=== PATIENT | female | born 1955 | race Caucasian/White ===

== ENCOUNTER → 2016-10-19 | Outpatient (REF) | payer BC ==
[2016-10-19 14:40] LABS: INR 0.89
== END ==
LOC: M LAB REF 14:01
PROVIDERS: ATTEND Nurse Practitioner Family
DX: Z79.1 Long term (current) use of non-steroidal anti-inflammatories (NSAID) (principal)

== ENCOUNTER → 2017-02-19 | Outpatient (CLI) | payer BC ==
--- NOTE | 2017-02-19 16:20 | REPMRS ---
Patient History The patient states she has not had a clinical breast exam in over a year. Patient is postmenopausal. No known family history of cancer. Digital Woman Screen Mammo: February 19, 2017 - Exam #: [id number] Bilateral CC and MLO view(s) were taken. Technologist: Jodi Bowden, Technologist Prior study comparison: September 01, 2014, bilateral digital mammo screening bilat, performed at [facility]. August 28, 2013, left breast digital mammo diagnostic unilateral, performed at [facility]. FINDINGS: There are scattered fibroglandular densities. There has been no change in the appearance of the mammogram from the prior studies. There is a mild amount of residual fibroglandular tissue which is fairly symmetric. There is no interval development of dominant mass, architectural distortion, or clustered microcalcification suggestive of malignancy. ASSESSMENT: BI-RADS/ACR category 1 mammogram. Negative. Recommendation Routine screening mammogram in 1 year (for women over age 40). This mammogram was interpreted with the aid of an FDA-approved computer-aided dectection system. Electronically Signed By: Floyd Herbert MD 02/19/17 [id number]
--- NOTE | 2017-02-22 10:58 | DEXA ---
AP SPINE L1 - L4 1.317 1.0 2.3 LT FEMUR TOTAL 1.175 1.3 2.3 RT FEMUR TOTAL 1.109 0.8 1.8 TOTAL BODY TOTAL OTHER COMMENTS: Normal bone densitometry of the spine and hips. The density of the spine is decreased 4.1% since 12/25/2007. The density of the left hip has decreased 4.0% since 12/25/2007. The density of the right hip has decreased 7.1% since 12/25/2007. The decreased density of the spine does represent a significant change. The decreased density of the left hip does represent a significant change. The decreased density of the right hip does represent a significant change. FOLLOW-UP: Recommendation for the next bone density exam: 5 years. HARMONY
== END ==
LOC: M WHC 15:11
PROVIDERS: ATTEND Internal Medicine
DX: Z12.31 Encounter for screening mammogram for malignant neoplasm of breast (principal); Z13.820 Encounter for screening for osteoporosis; M85.9 Disorder of bone density and structure, unspecified; Z78.0 Asymptomatic menopausal state
CPT/HCPCS: 77080; G0202

== ENCOUNTER 2019-01-19 07:42 | Day surgery (SDC) | payer BC ==
[~2019-01-19] VITALS: Ht 165.1 cm; Wt 84.4 kg
[~2019-01-19 07:42] MED LIST: MELO15TA28 PO; MULTCAP PO; NS 1,000 ML IV ONE
[2019-01-19] MEDS ORDERED: LIDOCAINE 2% INJ 100 MG/5 ML SDV (FOR ANES.) As Ordered ONE (09:26)
[2019-01-19] MEDS ORDERED: PROPOFOL 200 MG/20 ML VIAL As Ordered ONE (09:27)
--- NOTE | 2019-01-19 09:58 | ROOR ---
Patient Name: Theresa Nelson Procedure Date: 01/19/2019 9:39 AM Date of : 1955 Age: 63 Room: [facility] Gender: Female Note Status: Finalized Procedure: Colonoscopy Indications: High risk colon cancer surveillance: Personal history of colonic polyps Providers: David VILLEGAS MD Referring MD: MADELYN PERKINS JR, MD Requesting Provider: Medicines: Monitored Anesthesia Care Complications: No immediate complications. Procedure: Pre-Anesthesia Assessment: - The heart rate, respiratory rate, oxygen saturations, blood pressure, adequacy of pulmonary ventilation, and response to care were monitored throughout the procedure. The Colonoscope was introduced through the anus and advanced to the terminal ileum, with identification of the appendiceal orifice and IC valve. The colonoscopy was performed without difficulty. The patient tolerated the procedure well. The quality of the bowel preparation was adequate. Findings: The perianal and digital rectal examinations were normal. Small Internal Hemorrhoids. The entire examined colon appeared normal on direct and retroflexion views. Impression: - Small Internal Hemorrhoids. - The entire examined colon is normal on direct and retroflexion views. - No specimens collected. Recommendation: - Repeat colonoscopy in 10 years for screening purposes. David Villegas MD David VILLEGAS MD 01/19/2019 9:58:30 AM Electronically signed by David VILLEGAS MD Number of Addenda: 0 Note Initiated On: 01/19/2019 9:39 AM Estimated Blood Loss: Estimated blood loss: none.
[2019-01-19 10:25] VITALS: BP 120/74
== END 2019-01-19 10:28 | disposition home or self-care (01) ==
LOC: M OPP 07:42
PROVIDERS: ATTEND Internal Medicine Gastroenterology
DX: Z86.010 Personal history of colon polyps (principal); K64.8 Other hemorrhoids; E78.00 Pure hypercholesterolemia, unspecified; M17.0 Bilateral primary osteoarthritis of knee; F32.9 Major depressive disorder, single episode, unspecified; Z82.49 Family history of ischemic heart disease and other diseases of the circulatory system; Z82.0 Family history of epilepsy and other diseases of the nervous system; Z80.0 Family history of malignant neoplasm of digestive organs; Z80.8 Family history of malignant neoplasm of other organs or systems; Z79.899 Other long term (current) drug therapy

== ENCOUNTER → 2019-11-02 | Outpatient (REF) | payer BC ==
[~2019-11-02] MED LIST changes: -NS 1,000 ML IV ONE
[2019-11-03 12:09] LABS: ANTINUCLEAR ANTIBODIES DIRECT Negative (Negative)
== END ==
LOC: M LAB REF 10:54
PROVIDERS: ATTEND Physician Assistant Medical
DX: M25.50 Pain in unspecified joint (principal)